=== PATIENT | female | born 1990 | race Caucasian/White ===

== ENCOUNTER 2016-09-17 15:52 | Inpatient (IN) | payer OTHER ==
--- NOTE | ~2016-09-17 | PN ---
Unit #: [id number] #: [id number] Patient: SCOOBY LIRA [id number] [facility] [address] [place] [address] [id number] MR#: [id number] NAME: SCOOBY LIRA ROOM: P202 Age: 25 Sex: F Admission Date: 09/17/2016 : 1990 Attending Physician: Paul Damon M.D. Admitting Physician: Paul Damon M.D. Primary Care Physician: Primary Care Physician Susie BONNER PROGRESS NOTES DATE OF SERVICE: 09/18/2016 DISCUSSION Scooby Morgan is a 25-year-old female, seen on 09/18/2016. The patient continues to be guarded, flat affect, sad, depressed, hearing voices, withdrawal symptom. Complete review of systems unremarkable. MENTAL STATUS EXAMINATION General appearance, the patient dressed casually. Attention span and concentration, fair. Oriented in place and person. Mood and affect; sad, depressed, and withdrawn. Speech, slow. Thought process, circumstantial. Association, the patient denied any thoughts of harming self or others, but guarded and paranoid. Recent and remote memory, poor. Insight and judgment, poor. DIAGNOSES Psychiatric: 1. F33.2. 2. F10.20. ASSESSMENT AND PLAN Advised to start the patient on Zyprexa 10 mg at bedtime. Continue with detox protocol. We will closely monitor. If needed, consider further adjustment of medication. Dictated by... Alcides Chacon/yonis TD: 09/18/2016 16:26 JOB #: [id number] Unit #: [id number] #: [id number] Patient: SCOOBY LIRA PEASHANTI PROGRESS NOTES X Paul Damon MD PROGRESS NOTE
--- NOTE | ~2016-09-17 | PN ---
Unit #: [id number] #: [id number] Patient: SCOOBY AGUIRRE [id number] [facility] [address] [place] [address] [id number] MR#: [id number] NAME: SCOOBY AGUIRRE ROOM: P202 Age: 25 Sex: F Admission Date: 09/17/2016 : 1990 Attending Physician: Paul Damon M.D. Admitting Physician: Paul Damon M.D. Primary Care Physician: Primary Care Physician Susie PEREZ NOTES DATE OF SERVICE: 09/20/2016 DISCUSSION Ms. Scooby Aguirre is a 25-year-old female, seen on 09/20/2016. The patient interviewed, chart reviewed, and obtained information from nursing staff. The patient was continued to be seclusive, isolative, guarded, flat affect, sad, dysphoric mood. The patient denied any thoughts of harming self or others, but still seclusive. Complete review of systems unremarkable. MENTAL STATUS EXAMINATION General appearance, the patient dressed casually. Attention span and concentration, fair. Oriented in place and person. Mood and affect were labile. Speech, slow. Thought process, circumstantial. The patient denied any thoughts of harming self or others, but guarded. Recent and remote memory, poor. Insight and judgment, poor. DIAGNOSES 1. Mood disorder, not otherwise specified. 2. Major depressive disorder with psychotic feature. 3. Alcohol use disorder, severe. 4. Cocaine use disorder, severe. ASSESSMENT AND PLAN Advised to continue with current medication and therapeutic protocol. We will monitor response to medication and make further adjustment of medication. second worker is currently working on appropriate placement. Dictated by... Alcides Chacon/yonis TD: 09/20/2016 15:16 JOB #: [id number] Unit #: [id number] #: [id number] Patient: SCOOBY AGUIRRE CHRIS NOTES X Paul Damon MD PROGRESS NOTE
--- NOTE | ~2016-09-17 | PN ---
Unit #: [id number] #: [id number] Patient: SCOOBY AGUIRRE [id number] [facility] [address] [place] [address] [id number] I MR#: [id number] NAME: SCOOBY AGUIRRE ROOM: P202 Age: 25 Sex: F Admission Date: 09/17/2016 : 1990 Attending Physician: Paul Damon M.D. Admitting Physician: Paul Damon M.D. Primary Care Physician: Primary Care Physician Susie PEREZ NOTES DATE OF SERVICE: 09/19/2016 DISCUSSION Ms. Scooby Aguirre is a 25-year-old female, seen on 09/19/2016. The patient interviewed, chart reviewed, and obtained information from nursing staff. The patient was compliant and cooperative. Mood was sad, dysphoric, flat affect. The patient is currently on detox protocol. The patient was seclusive, isolative, guarded. Complete review of systems unremarkable. MENTAL STATUS EXAMINATION General appearance, the patient dressed casually. Attention span and concentration, fair. Oriented in place and person. Mood and affect, sad and dysphoric. Speech, monotone. Thought process, concrete. The patient denied any thoughts of harming self or others, but guarded. Recent and remote memory, poor. Insight and judgment, poor. DIAGNOSES 1. Mood disorder, not otherwise specified. 2. Alcohol use disorder, severe. 3. Cocaine use disorder, severe. ASSESSMENT AND PLAN Advised to continue with current medication and therapeutic protocol. We will monitor response to medication and make further adjustment of medication if needed. Dictated by... Alcides Chacon/yonis TD: 09/19/2016 20:52 JOB #: [id number] Unit #: [id number] #: [id number] Patient: SCOOBY AGUIRRE KAILEY PEREZ NOTES X Paul Damon MD NOTE
--- NOTE | ~2016-09-17 | DS ---
Unit #: [id number] #: [id number] Patient: SCOOBY LIRA [id number] [facility] [address] [place] [address] [id number] MR#: [id number] NAME: SCOOBY LIRA ROOM: [facility] Age: 25 Sex: F Admission Date: 09/17/2016 : 1990 Discharge Date: 09/21/2016 Attending Physician: Paul Damon M.D. Primary Care Physician: Primary Care Physician No DISCHARGE SUMMARY REASON FOR ADMISSION Cocaine abuse. DIAGNOSTIC STUDIES LABORATORY RESULTS: Remarkable for urine drug screen positive for cocaine. HOSPITAL COURSE The patient was admitted to inpatient unit on 09/17/2016 and discharged on 09/21/2016. The patient was treated with group therapy, individual therapy, medication management. The patient responded well with the above modalities of treatment. Subsequently, the patient was discharged with a plan to follow up in outpatient program. DISCHARGE DIAGNOSES Psychiatric: Cocaine use disorder, severe, F14.20; mood disorder, not otherwise specified, F32.9. Secondary diagnosis: Deferred. Medical diagnosis: None. Stressors: Psychosocial stressors. DISCHARGE INSTRUCTIONS The patient to follow up in outpatient clinic as per social studies teacher. CONDITION ON DISCHARGE The patient was pleasant and cooperative, denied any psychotic symptom or any suicidal ideation. PROGNOSIS Guarded. DIET AND ACTIVITY As tolerated. DISCHARGE MEDICATIONS Zyprexa 10 mg at bedtime for mood symptom. Dictated by... Paul Damon M.D. Unit #: [id number] #: [id number] Patient: SCOOBY LIRA LOTUSC/modl TD: 09/23/2016 02:06 JOB #: [id number] DISCHARGE SUMMARY X Paul Damon MD X DISCHARGE SUMMARY
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
--- NOTE | ~2016-09-17 | HP ---
Unit #: [id number] #: [id number] Patient: SCOOBY LIRA [id number] [place] [address] [id number] MR#: [id number] NAME: SCOOBY LIRA ROOM: P202 Age: 25 Sex: F Admission Date: 09/17/2016 : 1990 Attending Physician: Paul Damon M.D. Admitting Physician: Paul Damon M.D. Primary Care Physician: Primary Care Physician No HISTORY AND PHYSICAL HISTORY OF PRESENT ILLNESS Scooby is a 25-year-old female admitted to [address] [place] [address] because of her continued polysubstance abuse which include cocaine and alcohol. PAST MEDICAL HISTORY 1. Long history of alcohol abuse. 2. History of illicit substance abuse. 3. Asthma. PAST SURGICAL HISTORY Nothing reported. ALLERGIES Cipro (anaphylaxis). SOCIAL HISTORY Smokes one pack per day. Drinks alcohol frequently. Admits to illicit drug use. FAMILY HISTORY Medically noncontributory. REVIEW OF SYSTEMS CONSTITUTIONAL: No fever or chills. HEENT: Denies any sore throat, ear pain or runny nose. CARDIOVASCULAR: Denies chest pain, irregular heart rhythm or palpitations. CHEST: Denies shortness of breath or cough. No hemoptysis. GASTROINTESTINAL: Denies nausea, vomiting, diarrhea or chronic constipation. ENDOCRINE: Denies history of increased thirst or urination. No recent significant weight loss or gain. GENITOURINARY: Denies dysuria, frequency, or hematuria. SKIN: Denies any rashes. HEMATOLOGIC: Denies history of increased bleeding or bruising. MUSCULOSKELETAL: Denies any hot, swollen joints. No generalized muscle pain. NEUROLOGIC: Denies problems with vision or speech. No frequent, severe headaches. No numbness, tingling or weakness in any extremities. Denies loss of bladder or bowel control. CURRENT MEDICATIONS 1. Detox protocol. 2. Trazodone 75 mg q.h.s. Unit #: [id number] #: [id number] Patient: SCOOBY LIRA 3. Zyprexa 5 mg q. 4 hours p.r.n. PHYSICAL EXAMINATION GENERAL: Alert, well nourished. No apparent distress. VITAL SIGNS: Blood pressure 108/72, heart rate 65, respirations 16, and temperature 98.6. WEIGHT: 143. HEIGHT: 5 feet 9 inches. SKIN: Warm and dry without rash or lesion. HEENT: Normocephalic. TMs not viewed. Oral and nasal passages clear. Conjunctivae clear. PERRLA. EOMs intact. NECK: Supple without lymphadenopathy or thyromegaly. HEART: Regular rate and rhythm without murmur. LUNGS: Clear. ABDOMEN: Soft, nontender. : Not done. EXTREMITIES: No evidence of cyanosis, clubbing or edema. Moves all without focal deficit. NEUROLOGICAL: Grossly within normal limits. Cranial Nerves: II: Visual ba are intact. III, IV AND : Extraocular movements are intact. Pupils are equal, round and reactive to light. V: Facial sensation is grossly normal. VII: Facial movements and expression are normal. VIII: Auditory acuity grossly intact. IX, X: Uvula is midline. Phonation is normal. XI: Patient shrugs shoulders and turns head normally. XII: Tongue protrudes in the midline. Sensory and Motor Function: Sensory and motor sensation is grossly normal. Motor: moves all extremities well. Coordination: Gait is normal. Deep Tendon Reflexes: Intact. IMPRESSION Psychiatric admission. RECOMMENDATIONS PSYCHIATRIC: Per psychiatrist. MEDICAL: I see no contraindication to participate in this facility's activities. MEDICAL PROGNOSIS Good. MEDICAL CONDITION Stable. Dictated by... Delia Hatch P.A.-C. for Alcides Bernardo/tangela TD: 09/18/2016 10:20 JOB #: [id number] Unit #: [id number] #: [id number] Patient: SCOOBY LIRA HISTORY AND PHYSICAL X Delia Hatch HISTORY AND PHYSICAL
[2016-09-18 09:30] LABS: BASOPHIL% 0.8 % (0-2.5); EOSINOPHIL# 0.2 X10e3 (0-0.7); EOSINOPHIL% 4.5 % (0.0-7.0); HEMATOCRIT 38.1 % (35.0-45.0); HEMOGLOBIN 12.4 gm/dL (12.0-16.0); LYMPHOCYTE# 1.6 X10e3 (1.0-3.5); LYMPHOCYTE% 31.3 % (17.0-45.0); MEAN CELL VOLUME 89.5 FL (83-96); MEAN CORPUSCULAR HEMOGLOBIN 29.1 PG (28-34); MEAN CORPUSCULAR HGB CONC 32.6 g/dL (30-36); MEAN PLATELET VOLUME 8.4 FL (6.5-11.5); MONOCYTE# 0.9 X10e3 (0-1.0); MONOCYTE% 18.3 % (3.0-12.0); NEUTROPHIL# 2.3 X10e3 (1.5-7.1); NEUTROPHIL% 45.1 % (40-75); PLATELET COUNT 254 X10e3 (140-420); RED BLOOD COUNT 4.26 X10e (3.90-5.30); RED CELL DISTRIBUTION WIDTH 15.7 % (11.0-15.5); WHITE BLOOD COUNT 5.1 X10e3 (4.0-10.5)
[2016-09-18 09:39] LABS: DIFF IND NO
[2016-09-18 09:59] LABS: URINE APPEARANCE TURBID; URINE BLOOD NEG (NEG); URINE COLOR DK YELLOW; URINE GLUCOSE NEG (NEG); URINE KETONE NEG (NEG); URINE LEUKOCYTE ESTERASE NEG (NEG); URINE NITRATE NEG (NEG); URINE PH 5.5 (5-8); URINE PROTEIN NEG (NEG); URINE SPECIFIC GRAVITY 1.022 (1.003-1.035); URINE UROBILINOGEN 0.2 MG/DL (NEG)
[2016-09-18 10:02] LABS: ALKALINE PHOSPHATASE 64 U/L (32-92); ALT (SGPT) 18 U/L (10-40); AST (SGOT) 21 U/L (10-42); BILIRUBIN,TOTAL 1.1 mg/dL (0.2-2.0); BLOOD UREA NITROGEN 7 mg/dL (9-23); CALCIUM SERUM 9.5 mg/dL (8.4-10.2); CARBON DIOXIDE 29 mmol/L (22-31); CHLORIDE 101 mmol/L (100-111); GLOM FILT RATE Estimated ABOVE60 mL/min (>60); GLUCOSE FASTING 103 mg/dL (70-110); POTASSIUM 4.7 mmol/L (3.5-5.1); PROTEIN TOTAL SERUM 7.4 g/dL (6.0-8.3); SODIUM 139 mmol/L (135-145); THYROID STIMULATING HORMONE 1.2 uIU/ml (0.34-5.60)
[2016-09-18 10:12] LABS: URINE BILIRUBIN NEG (NEG)
[2016-09-18 10:13] LABS: FREE THYROXIN (T4) 0.88 ng/dL (0.58-1.64)
[2016-09-18 10:36] LABS: AMPHETAMINE NEG (NEG); BARBITURATES NEG (NEG); BENZODIAZEPINES NEG (NEG); COCAINE POS (NEG); MARIJUANA NEG (NEG); OPIATES NEG (NEG); TRICYCLIC ANTIDEPRESSANTS NEG (NEG); U METHADONE NEG (NEG)
== END 2016-09-21 15:42 | disposition home or self-care (01) | DRG 885 ==
LOC: P2S 15:52
PROVIDERS: Psychiatry & Neurology Psychiatry
PROC: HZ2ZZZZ Detoxification Services for Substance Abuse Treatment (ICD-10-PCS; principal; 2016-09-17)
DX: F33.2 Major depressive disorder, recurrent severe without psychotic features (principal); F14.20 Cocaine dependence, uncomplicated; F10.20 Alcohol dependence, uncomplicated; J45.909 Unspecified asthma, uncomplicated; F17.200 Nicotine dependence, unspecified, uncomplicated
CPT/HCPCS: 80053; 80307; 81003; 84439; 84443; 84703; 85025; 86592

== ENCOUNTER 2016-10-09 19:04 | Inpatient (IN) | payer OTHER ==
--- NOTE | ~2016-10-09 | PA ---
Unit #: [id number] #: [id number] Patient: SCOOBY LIRA [id number] [facility] [address] [place] [address] [id number] MR#: [id number] NAME: SCOOBY LIRA ROOM: P177 Age: 25 Sex: F Admission Date: 10/09/2016 : 1990 Date of Assessment: Attending Physician: Paul Damon M.D. Admitting Physician: Paul Damon M.D. Primary Care Physician: Primary Care Physician No PSYCHIATRIC ASSESSMENT INFORMANTS The patient reliability, fair; chart reliability, good. CHIEF COMPLAINT Using drugs in . HISTORY OF PRESENT ILLNESS Ms. Scooby Lira is a 25-year-old female who has a history of bipolar disorder, suicidal ideation, and psychosis. Previous treatment at [facility] in 2014 and 2016, outpatient services through [facility]. Currently on no medication. The patient lives alone in [facility]. The patient presented for detox. The patient stated that she was referred from [facility] for clearance before she can stay. The patient was referred to [facility] by [facility]. The patient is 8-1/2 week per history. The patient reported drinking about a pint of whiskey over the past 10 days since discharge from [facility]. The patient had initial CIWA of 11 to 12 and followup CIWA 11 to 12. The patient was admitted to inpatient for detox. The patient denied any thoughts of harming self or others or any psychotic symptom. PAST PSYCHIATRIC HISTORY Remarkable for history of previous treatment as mentioned above. FAMILY HISTORY AND SOCIAL HISTORY The patient has a poor support system. No history of any abuse. MEDICAL HISTORY Remarkable for . MEDICATIONS None. ALLERGIES No known drug allergies. SUBSTANCE ABUSE HISTORY The patient reported tobacco use, 1 to 2 cigarettes a day; alcohol, 1 pint daily; marijuana, age of onset 18; crack cocaine, age of onset 21. The patient reported last period of sobriety, 10/05/2016. The patient reported history of blackout in the past, abdominal cramping, muscle cramping, diaphoresis, diarrhea, irritability, nervousness, poor concentration, and tremor. Unit #: [id number] #: [id number] Patient: GARLAND,SCOOBY REVIEW OF SYSTEMS HEENT: Eyes, clear. Ears, nose, mouth, and throat; clear. CARDIOVASCULAR: Unremarkable. RESPIRATORY: Unremarkable GI: Unremarkable. : Unremarkable. SKIN: Unremarkable. LYMPH NODE: Unremarkable. NEUROLOGIC: Unremarkable. ENDOCRINE: Unremarkable. HEMATOLOGIC: Unremarkable. ALLERGIC/IMMUNOLOGIC: Unremarkable. MUSCULOSKELETAL: Muscle strength and tone, no atrophy or abnormal movement. Gait normal. MENTAL STATUS EXAMINATION CONSTITUTIONAL: Measurement of vital signs; temperature 99.7, pulse 57, respirations 16, and blood pressure 95/50. Height 5 feet 9 inches and weight 140 pounds. GENERAL APPEARANCE: The patient dressed casually. The patient did not show any facial deformity. MUSCULOSKELETAL: Please see above. PSYCHIATRIC EXAMINATION Description of speech; regular rate, normal volume, normal articulation, coherent. Description of thought process, goal directed. Description of association, intact. Description of abnormal psychotic thinking; the patient denied any hallucinations, delusions, or mood lability. Description of the patient's judgment: Concerning everyday activity, poor. Social situation, poor. Concerning psychiatric condition, poor. Complete mental status examination; oriented in time, place, and person. Recent and remote memory, poor. Attention span and concentration, fair. Language; able to name object, repeat phrases. Fund of knowledge; aware of current event, passive vocabulary intact. Mood and affect, sad and dysphoric. Insight and judgment, fair to poor. ASSETS AND LIABILITIES Assets; the patient is articulate, able to take care of her ADL. Liability; history of and substance abuse. ADMITTING DIAGNOSES Psychiatric: 1. Alcohol use disorder, severe, F10.20. 2. Bipolar mood disorder, not otherwise specified, F31.89. Secondary diagnosis: Deferred. Medical diagnoses: , asthma. Stressors: Psychosocial stressors. PSYCHIATRIC PLAN, TREATMENT GOAL, AND DISCHARGE PLAN 1. Advised to admit the patient on the inpatient unit. Provide safe, supportive, and structured environment. 2. Ordered labs; CBC, CMP, UA, and UDS. 3. Precaution for detox protocol and detox monitoring. 4. The patient is to continue with inpatient programing. If needed, consider further adjustment of medication. Unit #: [id number] #: [id number] Patient: SCOOBY LIRA 5. The patient is to attend all the programing on the inpatient unit. 6. Treatment goal is to attain euthymic mood, gain insight into her problem, and learn coping skills. 7. Discharge plan: Plan is to stabilize the patient and consider followup in outpatient program. ESTIMATED LENGTH OF STAY 1 to 3 days. Dictated by... Alcides Chacon/yonis TD: 10/10/2016 15:46 JOB #: [id number] PSYCHIATRIC ASSESSMENT Page 1 of 1 X Paul Damon MD X PSYCHIATRIC ASSESSMENT
--- NOTE | ~2016-10-09 | DS ---
Unit #: [id number] #: [id number] Patient: AWA LIRA [id number] [facility] [address] [place] [address] [id number] MR#: [id number] NAME: AWA LIRA ROOM: [facility] Age: 25 Sex: F Admission Date: 10/09/2016 : 1990 Discharge Date: 10/10/2016 Attending Physician: Paul Damon M.D. Primary Care Physician: Primary Care Physician No DISCHARGE SUMMARY REASON FOR ADMISSION Alcohol withdrawal and alcohol detox. HISTORY OF PRESENT ILLNESS Ms. Awa Lira is a 25-year-old female, admitted on 10/09/2016 and discharged on 10/10/2016. The patient was treated with group therapy and individual therapy. The patient did not show any withdrawal symptom, compliant, and cooperative. The patient was subsequently discharged as the patient was able to maintain safe behavior. I did not show any further withdrawal symptom with a plan to follow up at [facility]. DISCHARGE MEDICATIONS None. DISCHARGE DIAGNOSES Psychiatric: 1. Alcohol use disorder, severe, F10.20. 2. Mood disorder, not otherwise specified, F32.9. 3. History of bipolar mood disorder, F31.89. Secondary diagnosis: Deferred. Medical diagnoses: , asthma. Stressors: Psychosocial stressors. DISCHARGE INSTRUCTIONS The patient is to follow up as per social media sr strategy manager. CONDITION ON DISCHARGE The patient was pleasant and cooperative. Denied any psychotic symptom or any suicidal ideation. PROGNOSIS Guarded. DIET AND ACTIVITY As tolerated. Dictated by... Paul Damon M.D. [facility] Unit #: [id number] #: [id number] Patient: AWA LIRA TD: 10/10/2016 15:09 JOB #: [id number] DISCHARGE SUMMARY Page 1 of 1 X Paul Damon MD X DISCHARGE SUMMARY
--- NOTE | ~2016-10-09 | HP ---
Unit #: [id number] #: [id number] Patient: SCOOBY LIRA [id number] [place] [address] [id number] MR#: [id number] NAME: SCOOBY LIRA ROOM: [facility] Age: 25 Sex: F Admission Date: 10/09/2016 : 1990 Attending Physician: Paul Damon M.D. Admitting Physician: Paul Damon M.D. Primary Care Physician: Primary Care Physician No HISTORY AND PHYSICAL NOTE Scooby is a 25 year old who was admitted and discharged within the first 24 hours. She was not seen for an history and physical. Dictated by... Delia Hatch P.A.-C. for Alcides Bernardo/re TD: 10/10/2016 22:32 JOB #: [id number] HISTORY AND PHYSICAL Page 1 of 1 X Delia Hatch HISTORY AND PHYSICAL
[2016-10-10 09:42] LABS: BASOPHIL% 0.7 % (0-2.5); EOSINOPHIL# 0.2 X10e3 (0-0.7); EOSINOPHIL% 3.6 % (0.0-7.0); HEMATOCRIT 35.3 % (35.0-45.0); HEMOGLOBIN 11.4 gm/dL (12.0-16.0); LYMPHOCYTE# 1.9 X10e3 (1.0-3.5); LYMPHOCYTE% 36.3 % (17.0-45.0); MEAN CORPUSCULAR HEMOGLOBIN 29.4 PG (28-34); MEAN CORPUSCULAR HGB CONC 32.3 g/dL (30-36); MONOCYTE# 0.6 X10e3 (0-1.0); MONOCYTE% 11.8 % (3.0-12.0); NEUTROPHIL# 2.4 X10e3 (1.5-7.1); NEUTROPHIL% 47.6 % (40-75); PLATELET COUNT 210 X10e3 (140-420); RED BLOOD COUNT 3.88 X10e (3.90-5.30); RED CELL DISTRIBUTION WIDTH 16.2 % (11.0-15.5); WHITE BLOOD COUNT 5.1 X10e3 (4.0-10.5)
[2016-10-10 09:46] LABS: DIFF IND NO
[2016-10-10 09:58] LABS: THYROID STIMULATING HORMONE 1.05 uIU/ml (0.34-5.60)
[2016-10-10 10:05] LABS: FREE THYROXIN (T4) 0.83 ng/dL (0.58-1.64)
[2016-10-10 10:11] LABS: ALBUMIN SERUM 3.5 g/dL (3.5-5.0); ALKALINE PHOSPHATASE 41 U/L (32-92); ALT (SGPT) 16 U/L (10-40); AST (SGOT) 15 U/L (10-42); BILIRUBIN,TOTAL 0.7 mg/dL (0.2-2.0); BLOOD UREA NITROGEN 9 mg/dL (9-23); BUN/CREATININE RATIO 12.85; CALCIUM SERUM 9.2 mg/dL (8.4-10.2); CARBON DIOXIDE 28 mmol/L (22-31); CHLORIDE 104 mmol/L (100-111); CREATININE SERUM 0.7 mg/dL (0.6-1.4); GLOM FILT RATE Estimated ABOVE60 mL/min (>60); GLUCOSE FASTING 87 mg/dL (70-110); POTASSIUM 5.1 mmol/L (3.5-5.1); PROTEIN TOTAL SERUM 6.3 g/dL (6.0-8.3); SODIUM 136 mmol/L (135-145)
[2016-10-11 09:48] LABS: URINE APPEARANCE CLEAR; URINE BILIRUBIN NEG (NEG); URINE BLOOD NEG (NEG); URINE COLOR YELLOW; URINE GLUCOSE NEG (NEG); URINE KETONE NEG (NEG); URINE LEUKOCYTE ESTERASE NEG (NEG); URINE NITRATE NEG (NEG); URINE PH 6.5 (5-8); URINE PROTEIN NEG (NEG); URINE SPECIFIC GRAVITY 1.007 (1.003-1.035); URINE UROBILINOGEN 0.2 MG/DL (NEG)
[2016-10-11 10:52] LABS: AMPHETAMINE NEG (NEG); BARBITURATES NEG (NEG); BENZODIAZEPINES NEG (NEG); COCAINE POS (NEG); MARIJUANA NEG (NEG); OPIATES NEG (NEG); TRICYCLIC ANTIDEPRESSANTS NEG (NEG); U METHADONE NEG (NEG)
== END 2016-10-10 16:00 | disposition home or self-care (01) | DRG 897 ==
LOC: P1E 19:04
PROVIDERS: Psychiatry & Neurology Psychiatry
PROC: HZ2ZZZZ Detoxification Services for Substance Abuse Treatment (ICD-10-PCS; principal; 2016-10-09)
DX: F10.20 Alcohol dependence, uncomplicated (principal); F31.89 Other bipolar disorder; Z33.1 Pregnant state, incidental; J45.909 Unspecified asthma, uncomplicated
CPT/HCPCS: 80053; 80307; 81003; 84439; 84443; 84702; 85025